=== PATIENT | female | born 1995 | race Caucasian/White ===

== ENCOUNTER 2019-08-27 12:49 | Emergency (ER) | payer OTHER ==
[~2019-08-27] VITALS: Ht 170.2 cm; Wt 62.7 kg
[~2019-08-27 12:49] MED LIST: BCP
[2019-08-27 14:05] LABS: BASOPHILS # (AUTO) 0.05 x10^3/uL (0-0.1); BASOPHILS % (AUTO) 1 % (0-1); EOSINOPHILS # (AUTO) 0.21 x10^3/uL (0-0.4); EOSINOPHILS % (AUTO) 3 % (1-7); LYMPHOCYTES # (AUTO) 1.86 x10^3/uL (1-3.4); LYMPHOCYTES % (AUTO) 24 % (22-44); MD NO; MEAN CORPUSCULAR HEMOGLOBIN 33.6 pg (27.0-34.8); MEAN CORPUSCULAR HGB CONC 33.2 g/dL (32.4-35.8); MEAN CORPUSCULAR VOLUME 101.3 fL (80-100); MEAN PLATELET VOLUME 9.6 fL (7.4-10.4); MONOCYTES # (AUTO) 0.41 x10^3/uL (0.2-0.8); MONOCYTES % (AUTO) 5 % (2-9); NEUTROPHILS # (AUTO) 5.32 x10^3/uL (1.8-6.8); NEUTROPHILS % (AUTO) 68 % (42-75); PLATELET COUNT 229 x10^3/uL (130-400); RED BLOOD COUNT 5.33 x10^6/uL (3.82-5.3); RED CELL DISTRIBUTION WIDTH 13.1 % (9.6-15.2)
--- NOTE | 2019-08-27 14:12 | NUR ---
SERVER ASSISTANT: PT AMBULATORY TO ROOM FROM LOBBY
--- NOTE | 2019-08-27 14:15 | NUR ---
PT AMBULATORY TO ROOM FROM LOBBY WITH TECH. NAD NOTED; PWD. BP/SPO2/ECG MONITORING IN PLACE. NSR ON MONITOR.
[2019-08-27 14:17] LABS: ALBUMIN 4.2 g/dL (3.4-5.0); ANION GAP 4 mmol/L (5-15); CALCIUM 9.2 mg/dL (8.5-10.1); CHLORIDE 105 mmol/L (98-107); CREATININE 0.81 mg/dL (0.55-1.02)
[2019-08-27 14:21] LABS: TROPONIN I < 0.015 ng/mL (0.000-0.045)
[2019-08-27 14:39] VITALS: BP 114/62
--- NOTE | 2019-08-27 15:00 | NUR ---
THIS IS A 24 YO FEMALE COMING IN FOR CHEST PAINS STARTING TWO DAYS AGO. PAIN CONSTANT AND LOCATED ON LEFT STERNAL BORDER, RATED 8/10. PATIENT STATES "IT'S TRIGGERED BY MOVEMENT AND CAUSES TROUBLE BREATHING". PATIENT SPEAKING IN FULL SENTENCES, BREATH SOUNDS CLEAR THROUGHOUT, NO ACUTE DISTRESS. PAIN RADIATES TO LEFT SIDE OF BACK OCCASIONALLY. PATIENT PLACED ON CHIEF BUSINESS OFFICER, NORMAL SINUS RHYTHM NOTED, CONTINUOUS SPO2 98%, CYCLE BP Q1HR. CALL LIGHT IN REACH. DENIES FURTHER NEEDS AT THIS TIME.
--- NOTE | 2019-08-27 15:12 | NUR ---
Patient/Caregiver given discharge instructions and they have confirmed that they understand the instructions. Patient ambulatory with steady gait.
== END 2019-08-27 15:20 | disposition home or self-care (01) ==
LOC: ED 15:00
DX: R09.1 Pleurisy (principal); R06.02 Shortness of breath
CPT/HCPCS: 36415; 71046; 80048; 82040; 84484; 85025; 93005; 99284